=== PATIENT | male | born 1940 | race Asian ===

== ENCOUNTER 2021-04-30 12:01 | Emergency (ER) | payer OTHER, MEDICAID, SELFPAY ==
[~2021-04-30] VITALS: Ht 162.6 cm; Wt 53.1 kg
[2021-04-30 12:19] VITALS: BP_SYST 129
--- NOTE | 2021-04-30 12:19 | NUR ---
PT TRIAGED AND PLACED IN WAITING ROOM FOR AVAILABLE BED
--- NOTE | 2021-04-30 12:25 | NUR ---
PT BIB FAMILY C/O THIS AM WORSENING WEAKNESS IN LEGS, SPECIFICALLY ANKLES, HIPS AND KNEES, HARDER TO WALK AND BALANCE. DENIES NUMBNESS OR TINGLING, NO FACIAL DROOP. PT IS AMBULATORY WITH A CANE, AAOX4, V/S STABLE
--- NOTE | 2021-04-30 12:30 | NUR ---
ER DR. DEAN EXAMINING PT
[2021-04-30 13:18] LABS: BASOPHILS % (AUTO) 0.4 % (0.0-2.0); EOSINOPHILS % (AUTO) 0.8 % (0.0-4.0); HEMATOCRIT 41.1 % (36-54); HEMOGLOBIN 13.9 g/dL (14.0-18.0); LYMPHOCYTES # (AUTO) 1.4 K/uL (1.0-5.5); LYMPHOCYTES % (AUTO) 25.5 % (20.5-51.5); MEAN CORPUSCULAR HEMOGLOBIN 30 pg (27-31); MEAN CORPUSCULAR HGB CONC 34 % (32-36); MEAN CORPUSCULAR VOLUME 90 fL (79.0-98.0); MONOCYTES # (AUTO) 0.5 K/uL (0.0-1.0); MONOCYTES % (AUTO) 9.2 % (1.7-9.3); NEUTROPHILS # (AUTO) 3.5 K/uL (1.8-7.7); NEUTROPHILS % (AUTO) 64.1 % (40.0-70.0); PLATELET COUNT (AUTO) 366 K/uL (130-430); RED BLOOD CELL COUNT(AUTO) 4.57 MIL/uL (4.2-6.2); RED CELL DISTRIBUTION WIDTH 14.1 % (9.0-15.0); WHITE BLOOD COUNT (AUTO) 5.5 K/uL (4.8-10.8)
[2021-04-30 13:25] LABS: ANION GAP 10 (5-15); CALCIUM 9.8 mg/dL (8.4-11.0); CHLORIDE 103 mmol/L (98-107); CREATININE 1.17 mg/dL (0.55-1.30); GLUCOSE 108 mg/dL (70-99); POTASSIUM 3.5 mmol/L (3.5-5.1); SODIUM SERUM 138 mmol/L (136-145); UREA NITROGEN, BLOOD 15 mg/dL (8-21)
[2021-04-30 13:32] LABS: INR 0.9 (0.80-1.20)
[2021-04-30 13:34] LABS: ACETONE, SERUM NEGATIVE (NEGATIVE)
[2021-04-30 13:39] LABS: ALANINE AMINOTRANSFERASE 25 U/L (12-78); ALBUMIN 4.3 g/dL (3.4-4.8); ASPARTATE AMINOTRANSFERASE 20 U/L (10-37); TOTAL BILIRUBIN 0.3 mg/dL (0.0-1.0)
--- NOTE | 2021-04-30 13:48 | NUR ---
Patient transported to radiology via WC, accompanied by STAFF.
--- NOTE | 2021-04-30 14:30 | NUR ---
Patient given written and verbal discharge instructions and verbalizes understanding. ER MD discussed with patient the results and treatment provided. Patient in stable condition. ID arm band removed. NO Rx given. Patient educated on pain management and to follow up with PMD. Pain Scale 0/10. Opportunity for questions provided and answered. Medication side effect fact sheet provided.
[2021-04-30 14:32] VITALS: BP_SYST 129
== END 2021-04-30 14:30 | disposition home or self-care (01) ==
LOC: SED 12:01
DX: R53.1 Weakness (principal)
CPT/HCPCS: 36415; 70450-TC; 71045; 76376; 80053; 82009; 82550; 83605; 85025; 85610-TC; 85730-TC; 93005; 99285

== ENCOUNTER 2023-12-26 09:01 | Emergency (ER) | payer MEDICARE, MEDICAID ==
[~2023-12-26] VITALS: Ht 154.9 cm; Wt 51.3 kg
[2023-12-26 09:10] VITALS: BP_SYST 165; PULSE 82; RESP 18; TEMP 98.3; O2SAT 98
[2023-12-26 09:36] LABS: BASOPHILS % (AUTO) 0.3 % (0.0-2.0); EOSINOPHILS % (AUTO) 0.1 % (0.0-4.0); HEMATOCRIT 36.2 % (36-54); HEMOGLOBIN 12.4 g/dL (14.0-18.0); LYMPHOCYTES # (AUTO) 0.7 K/uL (1.0-5.5); LYMPHOCYTES % (AUTO) 8.7 % (20.5-51.5); MEAN CORPUSCULAR HEMOGLOBIN 31 pg (27-31); MEAN CORPUSCULAR HGB CONC 34 % (32-36); MEAN CORPUSCULAR VOLUME 91 fL (79.0-98.0); MONOCYTES # (AUTO) 0.5 K/uL (0.0-1.0); MONOCYTES % (AUTO) 5.3 % (1.7-9.3); NEUTROPHILS # (AUTO) 7.4 K/uL (1.8-7.7); NEUTROPHILS % (AUTO) 85.6 % (40.0-70.0); PLATELET COUNT (AUTO) 323 K/uL (130-430); RED BLOOD CELL COUNT(AUTO) 3.99 MIL/uL (4.2-6.2); WHITE BLOOD COUNT (AUTO) 8.6 K/uL (4.8-10.8)
[2023-12-26] MEDS: DEXAMETHASONE SOD PHOSPHATE 4 MG/ML VIAL IVP ONE (09:42)
[2023-12-26] MEDS: FAMOTIDINE PF 20 MG/2 ML VIAL IVP ONE (09:43)
[2023-12-26] MEDS: KETOROLAC TROMETHAMINE 30 MG VIAL IVP ONE (09:43)
[2023-12-26] MEDS ORDERED: DEXAMETHASONE SOD PHOSPHATE 4 MG/ML VIAL ONE (09:45)
[2023-12-26 09:51] LABS: ALANINE AMINOTRANSFERASE 17 U/L (12-78); ANION GAP 7 (5-15); ASPARTATE AMINOTRANSFERASE 29 U/L (10-37); CALCIUM 9.9 mg/dL (8.4-11.0); CARBON DIOXIDE 27 mmol/L (23-29); CHLORIDE 97 mmol/L (98-107); CREATININE 1.29 mg/dL (0.55-1.30); GLUCOSE 162 mg/dL (74-106); POTASSIUM 3.4 mmol/L (3.5-5.1); SODIUM SERUM 131 mmol/L (136-145); TOTAL BILIRUBIN 0.3 mg/dL (0.0-1.0); TOTAL PROTEIN, SERUM 7.8 g/dL (6.4-8.3); UREA NITROGEN, BLOOD 12 mg/dL (8-21)
[2023-12-26 10:02] LABS: COVID19 ANTIGEN SOFIA FIA NEGATIVE (NEGATIVE)
[2023-12-26] MEDS: ONDANSETRON HCL 4 MG/2 ML VIAL IVP ONE (10:13)
[2023-12-26 10:14] LABS: INFLUENZA TYPE A Negative (NEGATIVE); INFLUENZA TYPE B NEGATIVE (NEGATIVE)
[2023-12-26] MEDS: ASPIRIN 81 MG TAB.CHEW PO ONE (12:11)
[2023-12-26 12:22] VITALS: BP_SYST 154; PULSE 94; RESP 23; TEMP 98; O2SAT 96
== END 2023-12-26 12:22 | disposition short-term general hospital (02) ==
LOC: SED 09:01
DX: I21.29 ST elevation (STEMI) myocardial infarction involving other sites (principal); R07.0 Pain in throat; Z20.822 Contact with and (suspected) exposure to COVID-19; I10 Essential (primary) hypertension; K21.9 Gastro-esophageal reflux disease without esophagitis; Z85.46 Personal history of malignant neoplasm of prostate
CPT/HCPCS: 99285; 96374; 70491; 96375; 71045; 87426; 80053; 85025; 84484; 36415; 93005; 87804 ×2; J1100; J3490; J1885; J2405; Q9967